=== PATIENT | male | born 1980 | race Caucasian/White ===

== ENCOUNTER 2018-12-21 06:25 | Emergency (ER) | payer BC ==
[~2018-12-21] VITALS: Ht 182.9 cm; Wt 98.0 kg
[2018-12-21 06:30] VITALS: BP 113/71
--- NOTE | 2018-12-21 06:31 | NUR ---
PT TAKEN TO BED 8
--- NOTE | 2018-12-21 06:49 | NUR ---
PT TO ED WITH C/O THROAT PAIN RADIATING TO LEFT EAR X 1 MONTH. PT REPORTS PAIN UPON SWALLOWING. PT DENIES DIFFICULTY BREATHING. ABLE TO SPEAK IN FULL CLEAR SENTENCES WITHOUT DIFFICULTY. PT PLACED INTO BED, PENDING MD ALEMAN.
--- NOTE | 2018-12-21 07:08 | NUR ---
RECEIVED REPORT FROM HOMER MOY FOR CONTINUATION OF CARE.
[2018-12-21 07:49] VITALS: BP 113/71
--- NOTE | 2018-12-21 07:49 | NUR ---
Patient discharged with v/s stable. Written and verbal after care instructions given and explained. Patient alert, oriented and verbalized understanding of instructions. Ambulatory with steady gait. All questions addressed prior to discharge. ID band removed. Patient advised to follow up with PMD. Rx of joni-d 12 given. Patient educated on indication of medication including possible reaction and side effects. Opportunity to ask questions provided and answered.
== END 2018-12-21 07:49 | disposition home or self-care (01) ==
LOC: MED 06:25
DX: J32.9 Chronic sinusitis, unspecified (principal); J02.9 Acute pharyngitis, unspecified; Z90.49 Acquired absence of other specified parts of digestive tract
CPT/HCPCS: 99282